=== PATIENT | male | born 1940 | race Caucasian/White ===

== ENCOUNTER 2021-07-10 08:27 | Day surgery (SDC) | payer MEDICARE ==
[2021-07-06 12:58] LABS: BASOPHILS % (AUTO) 0.7 % (0-1); EOSINOPHILS % (AUTO) 0.4 % (0-6); LYMPHOCYTES # (AUTO) 0.7 X10'3 (1.1-4.8); LYMPHOCYTES % (AUTO) 21.6 % (21-51); MEAN CORPUSCULAR HEMOGLOBIN 28.2 PG (27.0-31.0); MEAN CORPUSCULAR HGB CONC 31.7 g/dL (33.0-36.5); MEAN CORPUSCULAR VOLUME 88.9 FL (78-98); MEAN PLATELET VOLUME 7.2 FL (7.4-10.4); MONOCYTES # (AUTO) 0.7 X10'3 (0-0.9); MONOCYTES % (AUTO) 22.4 % (2-12); NEUTROPHILS # (AUTO) 1.7 X10'3 (1.8-7.7); NEUTROPHILS % (AUTO) 54.9 % (42-75); PRE OP PLATELET COUNT 207 X10'3 (140-440); RED BLOOD COUNT 2.41 X10'6 (4.70-6.10)
[2021-07-06 13:05] LABS: PRE OP HEMOGLOBIN 6.8 g/dL (14.0-17.9)
[2021-07-06 13:06] LABS: PRE OP HEMATOCRIT 21.4 % (42.0-52.0)
[2021-07-06 13:21] LABS: ALBUMIN 2.5 G/DL (3.4-5.0); ALBUMIN/GLOBULIN RATIO 0.6 (1.1-1.5); ALKALINE PHOSPHATASE 203 IU/L (46-116); BLOOD UREA NITROGEN 21 MG/DL (7-18); BUN/CREATININE RATIO 17.6 (5.4-32.0); CALCIUM 6.3 MG/DL (8.5-10.1); CHLORIDE 105 MMOL/L (99-107); CREATININE 1.19 MG/DL (0.60-1.10); PRE OP ANION GAP 15 (8-16); PRE OP AST 18 U/L (10-37); PRE OP BILIRUB, TOTAL 0.4 MG/DL (0.0-1.0); PRE OP GLUCOSE 144 MG/DL (70-104); PRE OP SODIUM 140 MMOL/L (135-145); TOTAL CARBON DIOXIDE 19.6 MMOL/L (24-32); TOTAL PROTEIN 6.5 G/DL (6.4-8.2); eGFR 59 ML/MIN
[2021-07-06 13:27] LABS: ANISOCYTOSIS 3+; PLATELET ESTIMATE NORMAL; TOTAL CELLS COUNTED 100
[2021-07-06 13:28] LABS: MICROCYTOSIS 1+; POLYCHROMASIA 1+
[2021-07-06 13:33] LABS: PRE OP ALT 11 U/L (30-65)
--- NOTE | 2021-07-06 15:27 | NUR ---
ABNORMAL LAB VALUES: WBC 3.0, HGB: 6.8 AND HCT; 21.4. FAXED RESULT TO DR RIVERA'S OFFICE (OFFICE CLOSED) TEXT MESSAGED RESULT TO . RESPONSE WAS "I AM IN A DIFFERENT TIME ZONE, CONTACT THE REFRIGERATION ENGINEER MD". RN CALLED OFFICE AND SPOKE WITH DR YIN THE REFRIGERATION ENGINEER MD. NOTIFIED HIM OF THE PATIENT LAB VALUES AND HE STATED THAT "I WILL NOT TOUCH THAT" "IT IS OK, IT CAN WAIT" "DR RIVERA WILL BE BACK IN THE OFFICE THIS WEEK AND HE CAN ADDRESS IT." RN ASKED IF THE PATIENT SHOULD BE SEEN IN THE ED AND DR YIN STATED "NO, HE DOESN'T NEED TO BE SEEN FOR THAT". RN ATTEMPTING TO CONTACT ANESTHESIOLOGIST WELL.
--- NOTE | 2021-07-06 16:10 | NUR ---
PT CALLED [facility] BACK AND INFORMED RN THAT HE IS GETTING A BLOOD TRANSFUSION TOMORROW 07/07 AT [facility] IN [place]. DR HOLLY AWARE AND STATED TO HAVE A STAT CBC DOS.
[2021-07-10] VITALS (11 sets, daily range): BP systolic 82–103; BP diastolic 53–68
[~2021-07-10] VITALS: Ht 175.3 cm; Wt 61.8 kg
[~2021-07-10 08:27] MED LIST: ASPI-1071 PO; DILT-88 PO; DOCUMENT DATE & TIME OF BETA-BLOCKER PO ONE; FINA5TAB11 PO; FLO0.4C PO; LACT1CAP86 PO; METO-411 PO; MIDO5TAB4 PO; ROSU10TA28 PO; famotidine 20mg tablet PO ONE; ringers solution, lacted 1,000 ML IV SCH
[2021-07-10] MEDS ORDERED: clindamycin-Cleocin 900mg/D5W 50 ML IV ONE (09:25)
[2021-07-10 09:50] LABS: HEMATOCRIT 28.7 % (42.0-52.0); HEMOGLOBIN 9.5 g/dl (14.0-17.9); LYMPHOCYTES # (AUTO) 0.7 X10'3 (1.1-4.8); MEAN PLATELET VOLUME 7.4 FL (7.4-10.4); MONOCYTES # (AUTO) 1.4 X10'3 (0-0.9)
[2021-07-10] MEDS ORDERED: morphine 2 MG/ML inj. syringe IV PRN (09:50)
[2021-07-10] MEDS ORDERED: ringers solution, lacted 1,000 ML IV SCH (09:50)
[2021-07-10] MEDS ORDERED: fentaNYL/PF 50MCG/1 ML 2ML syringe IV PRN ×2 (09:50)
[2021-07-10] MEDS ORDERED: hydrALAZINE 20mg/ml inj. IV PRN (09:50)
[2021-07-10] MEDS ORDERED: ondansetron/PF 4mg/2ml inj IV PRN (09:50)
[2021-07-10] MEDS ORDERED: labetalol 20mg/4ml (5mg/ml) syringe IV PRN (09:50)
[2021-07-10] MEDS ORDERED: morphine 4 MG/ML inj SYRINge IV PRN (09:50)
[2021-07-10 09:52] LABS: BASOPHILS % (AUTO) 0.4 % (0-1); EOSINOPHILS % (AUTO) 0.3 % (0-6); LYMPHOCYTES % (AUTO) 15.9 % (21-51); MEAN CORPUSCULAR HGB CONC 33.2 g/dL (33.0-36.5); MEAN CORPUSCULAR VOLUME 87.5 FL (78-98); MONOCYTES % (AUTO) 31.3 % (2-12); NEUTROPHILS # (AUTO) 2.2 X10'3 (1.8-7.7); NEUTROPHILS % (AUTO) 52.1 % (42-75); PLATELET COUNT 192 X10'3 (140-440); RED BLOOD COUNT 3.28 X10'6 (4.70-6.10); RED CELL DISTRIBUTION WIDTH 18.9 % (11.5-14.5); WHITE BLOOD COUNT 4.3 X10'3 (4.5-11.0)
[2021-07-10 10:16] LABS: TOTAL CELLS COUNTED 100
[2021-07-10 10:17] LABS: ANISOCYTOSIS 2+; PLATELET ESTIMATE NORMAL
[2021-07-10] MEDS ORDERED: VANCOMYCIN 1GM/200ML IVPB 200 ML IV ONE (13:00)
[2021-07-10] MEDS ORDERED: iohexol 240mg/ml 10ml vial ONE (13:03)
[2021-07-10] MEDS ORDERED: iohexol 300 MG/1 ML 50ml polymer ONE (13:12)
[2021-07-10] MEDS ORDERED: ondansetron/PF 4mg/2ml inj ONE (13:27)
[2021-07-10] MEDS ORDERED: propofol inj 20 ML IV ONE (13:27)
[2021-07-10] MEDS ORDERED: LIDOcaine 2% (20mg/ml) 5ml vial ONE (13:27)
[2021-07-10] MEDS ORDERED: dexamethasone sod phosphate 4mg/ml inj. ONE (13:28)
[2021-07-10] MEDS ORDERED: fentaNYL /PF 50mcg/ml 5ml ampule ONE (13:29)
[2021-07-10] MEDS ORDERED: naloxone 0.4 mg/ml inj ONE (13:41)
--- NOTE | 2021-07-10 13:51 | NUR ---
Received from OR via [facility] accompanied by Anesthesiologist DR THOMAS and report given by Anesthesiologist AND EDGE MOLDER. PT GABRIELSY, DENIES PAIN, Addendum: 07/10/21 at 1435 by Yanely Davies RN Amended: Links added.
[2021-07-10] MEDS ORDERED: albumin (Human) 5% 250ml 250 ML IV ONE (13:55)
--- NOTE | 2021-07-10 15:31 | NUR ---
PT UP AND ABLE TO AMBULATE SAFELY, D/C INSTRUCTIONS GIVEN AND GONE OVER W/PT WHO VERBALIZED UNDERSTANDING. PT D/CD TO HOME VIA W/C TO PRIVATE VEHICLE W/O INCIDENT. Addendum: 07/10/21 at 1542 by Yanely Davies RN Amended: Links added.
== END 2021-07-10 15:31 | disposition home or self-care (01) ==
LOC: PAS 08:27
PROVIDERS: ATTEND Urology
DX: N13.5 Crossing vessel and stricture of ureter without hydronephrosis (principal); I10 Essential (primary) hypertension; I48.91 Unspecified atrial fibrillation; N40.0 Benign prostatic hyperplasia without lower urinary tract symptoms; Z79.82 Long term (current) use of aspirin; Z79.899 Other long term (current) drug therapy; Z85.46 Personal history of malignant neoplasm of prostate; Z79.01 Long term (current) use of anticoagulants; Z20.822 Contact with and (suspected) exposure to COVID-19
CPT/HCPCS: 36415; 52332; 74420; 80053; 82948; 85025; C2617; J1100; J2310; J2405; J2704; J3010; J3370; J3490; J7030; J7120; P9045; Q9966; Q9967; U0003; U0005; Z7506; Z7512; 76000; 85007; A4618